=== PATIENT | male | born 1965 | race Caucasian/White ===

== ENCOUNTER 2019-03-26 13:12 | Emergency (ER) | payer MEDICAID, SELFPAY ==
[~2019-03-26] VITALS: Ht 165.1 cm; Wt 75.0 kg
[2019-03-26] MEDS ORDERED: ONDANSETRON 4MG/2ML VIAL (J2405) IV ONE (14:00)
[2019-03-26] MEDS ORDERED: MORPHINE 4 MG/ML 1ML VIAL/SYRINGE (J2270) IV ONE (14:00)
[2019-03-26] MEDS ORDERED: NS 1,000 ML IV ONE (14:00)
[2019-03-26] MEDS ORDERED: NS 500 ML IV ONE (14:00)
[2019-03-26 14:15] LABS: BASO % 0.5 % (0.0-1.0); EOS # 0.1 10^3/uL (0.0-0.50); EOS % 2.2 % (0.0-3.0); HEMATOCRIT 48.4 % (42.0-52.0); HEMOGLOBIN 16.2 g/dl (13.5-17.5); LYMPH % 31.2 % (24.0-44.0); MEAN CORPUSCULAR HEMOGLOBIN 28.4 pg (27.0-33.0); MEAN CORPUSCULAR HGB CONC 33.5 g/dl (32.0-36.5); MEAN CORPUSCULAR VOLUME 84.8 fl (80.0-96.0); MONO # 0.6 10^3/uL (0.0-0.8); MONO % 9.4 % (0.0-5.0); NEUTROPHILS # 3.7 10^3/uL (1.8-7.7); NEUTROPHILS % 56.4 % (36.0-66.0); PLATELET COUNT, AUTOMATED 233 10^3/uL (150-450); RED BLOOD COUNT 5.71 10^6/uL (4.30-6.10); WHITE BLOOD COUNT 6.5 10^3/uL (4.0-10.0)
[2019-03-26 14:26] LABS: INR 1.07
[2019-03-26 14:27] LABS: PARTIAL THROMBOPLASTIN TIME 29.9 SECONDS (25.4-37.6)
--- NOTE | 2019-03-26 14:45 | REP ---
Clinical: Chest pain. Technique: Internal rotation, external rotation, and Y view of the left shoulder. Findings: Cortical irregularity and spurring at the acromioclavicular joint is appreciated along with subtle calcified loose bodies inferior to the glenohumeral joint. No acute fracture dislocation. Subacromial space is normal. Impression: Mild arthritic degenerative changes. Electronically Signed by René Perez MD 03/26/2019 02:36 P
--- NOTE | 2019-03-26 14:46 | REP ---
Clinical: Chest pain. Technique: AP and lateral views of the left humerus. Findings: Mild degenerative changes to the shoulder. No acute fracture dislocation. No subcutaneous emphysema or radiodense foreign body. Impression: Mild degenerative changes. Electronically Signed by René Perez MD 03/26/2019 02:37 P
--- NOTE | 2019-03-26 14:47 | REP ---
Clinical: Chest pain. Technique: Single portable view of the chest. Findings: Mediastinum and cardiac silhouette are normal. Coarsened markings may reflect bronchitis. No focal consolidation, effusion, or pneumothorax. Skeletal structures intact. Impression: No focal consolidation. Cannot exclude bronchitis. Electronically Signed by René Perez MD 03/26/2019 02:38 P
[2019-03-26 14:52] LABS: ALBUMIN 3.8 GM/DL (3.2-5.2); ALT/SGPT 31 U/L (12-78); BILIRUBIN,DIRECT 0.1 MG/DL (0.0-0.2); BILIRUBIN,TOTAL 0.6 MG/DL (0.2-1.0); BLOOD UREA NITROGEN 15 MG/DL (7-18); CALCIUM LEVEL 8.5 MG/DL (8.5-10.1); CARBON DIOXIDE LEVEL 24 MEQ/L (21-32); CHLORIDE LEVEL 110 MEQ/L (98-107); CPK CREATINE PHOSPHOKINASE 52 U/L (39-308); CREATININE FOR GFR 0.32 MG/DL (0.70-1.30); FREE T4 3.78 NG/DL (0.76-1.46); GLOMERULAR FILTRATION RATE > 60.0 (>56); GLUCOSE, FASTING 104 MG/DL (70-100); LIPASE 929 U/L (73-393); MB/CK RELATIVE INDEX 3.27 (< OR =4); POTASSIUM SERUM 4.5 MEQ/L (3.5-5.1); SODIUM LEVEL 143 MEQ/L (136-145); THYROID STIMULATING HORMONE < 0.005 uIU/ML (0.358-3.740); TOTAL PROTEIN 6.8 GM/DL (6.4-8.2); TROPONIN I < 0.02 NG/ML (< 0.10)
[2019-03-26] MEDS ORDERED: PERCOCET 5MG/325MG TAB PO ONE (15:45)
[2019-03-26] MEDS ORDERED: PROPRANOLOL 20 MG TAB PO ONE (15:45)
[2019-03-26] MEDS ORDERED: ASPIRIN 325 MG TAB PO ONE (15:45)
--- NOTE | 2019-03-26 15:59 | REP ---
Clinical: Left upper extremity swelling . Technique: Walker scale and color Doppler evaluation using linear high frequency transducer. Findings: Ultrasound examination of the left upper extremity deep venous structures from the jugular, subclavian, axillary, brachial, basilic, and cephalic veins demonstrate normal venous flow characteristics. There is no evidence for deep venous thrombosis. Impression: No evidence for deep venous thrombosis left upper extremity . Electronically Signed by René Perez MD 03/26/2019 03:50 P
[2019-03-26] MEDS ORDERED: PERC5TAB12 PO (16:01)
[2019-03-26] MEDS ORDERED: ASPI-222 PO (16:02)
[2019-03-26] MEDS ORDERED: PROP20TA PO (16:02)
[2019-03-26 16:09] VITALS: BP 151/83
[2019-03-26 16:45] VITALS: BP 160/100
--- NOTE | 2019-03-26 19:25 | ECGEPIP ---
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
== END 2019-03-26 16:46 | disposition home or self-care (01) ==
LOC: M ED 13:12 → EDBD 13:12 → M ED 16:46
DX: I48.91 Unspecified atrial fibrillation (principal); S46.202A Unspecified injury of muscle, fascia and tendon of other parts of biceps, left arm, initial encounter; S46.002A Unspecified injury of muscle(s) and tendon(s) of the rotator cuff of left shoulder, initial encounter; W11.XXXA Fall on and from ladder, initial encounter; Y92.89 Other specified places as the place of occurrence of the external cause; Y99.0 Civilian activity done for income or pay; F17.200 Nicotine dependence, unspecified, uncomplicated
CPT/HCPCS: 71045; 73030; 73060; 80048; 80076; 82550; 82553; 83690; 84439; 84443; 85025; 85610; 85730; 93005; 93041; 93971; 94760; 96361; 96374; 96375; 99285; J2270; J2405

== ENCOUNTER → 2019-03-31 | Outpatient (REF) | payer MEDICAID ==
[~2019-03-31] MED LIST: ASPI-222 PO; PERC5TAB12 PO; PROP20TA PO
== END ==
LOC: M SFHCPLAZ 16:02
DX: E78.5 Hyperlipidemia, unspecified (principal); E66.9 Obesity, unspecified

== ENCOUNTER → 2019-06-16 | Outpatient (CLI) | payer OTHER ==
[~2019-06-16] MED LIST changes: -ASPI-222 PO; +ASPI-527 PO
== END ==
LOC: M LAB 13:27
PROVIDERS: ATTEND Internal Medicine Endocrinology, Diabetes & Metabolism
DX: E05.00 Thyrotoxicosis with diffuse goiter without thyrotoxic crisis or storm (principal)
CPT/HCPCS: 79005; A9517

== ENCOUNTER → 2019-09-26 | Outpatient (REF) | payer OTHER ==
[2019-09-26 19:26] LABS: FREE T4 0.63 NG/DL (0.76-1.46); THYROID STIMULATING HORMONE 0.006 uIU/ML (0.358-3.740)
== END ==
LOC: M LABDRAW1 17:07
PROVIDERS: ATTEND Nurse Practitioner Family
DX: E05.00 Thyrotoxicosis with diffuse goiter without thyrotoxic crisis or storm (principal)

== ENCOUNTER 2019-11-30 06:04 | Day surgery (SDC) | payer OTHER ==
[~2019-11-30] VITALS: Ht 165.1 cm; Wt 87.5 kg
[~2019-11-30 06:04] MED LIST changes: +ELIQ5TAB PO; +LEVO100T5 PO; +LR 1,000 ML IV ONE; +PROP40TA62 PO
[2019-11-30] MEDS ORDERED: propofoL 200 MG/20 ML VIAL As Ordered ONE (07:11)
[2019-11-30 08:14] VITALS: BP 117/74
--- NOTE | 2019-11-30 09:19 | RO ---
DATE: 11/30/2019 PROCEDURE: DC cardioversion. INDICATION: Atrial fibrillation. BRIEF HISTORY: Mr. Pleitez is a 53-year-old man who has had atrial fibrillation now for approximately 9 months. It was triggered by hyperthyroidism. Because he did not convert back to sinus rhythm after he became euthyroid we decided to proceed with DC cardioversion. I explained the nature of the procedure, potential risks and benefits to him and his on outpatient basis. He did sign appropriate consent. We went over this situation again prior to the procedure. PROCEDURE NOTE: Procedure was performed in recovery room. Darren Ch CRNA was providing sedation. After appropriate time-out was taken and all the monitors were applied he was cardioverted with 200 joules of energy in synchronized fashion. A single shock led to caodaism of sinus rhythm. There were no immediate complications. At the time of this dictation a 12-lead ECG is pending. I tentatively plan to see him in followup next week. There will be no medication changes. OLEKSANDR
--- NOTE | 2019-12-02 19:55 | ECGEPIP ---
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
--- NOTE | 2019-12-02 19:58 | ECGEPIP ---
[facility] Test Date: 2019-11-30 Pat Name: MENA OLMOS Department: Room: - Gender: Male Competency Evaluated Nurse Aide: : 1965 Requested By: Emilee Romero Order Number: [id number] Reading MD: Emilee Romero Measurements Intervals [place] Rate: 65 P: -5 VT: 204 QRS: 11 QRSD: 105 T: 14 QT: 422 QTc: 439 Interpretive Statements SINUS RHYTHM COMPARED TO 7:01 SAME DAY SINUS RHYTHM REPLACED ATRIAL FIBRILLATION Electronically Signed on 12-02-2019 19:58:27 EST by Emilee Romero
== END 2019-11-30 08:40 | disposition home or self-care (01) ==
LOC: M SDC 06:04
PROVIDERS: ATTEND Internal Medicine Cardiovascular Disease
DX: I48.91 Unspecified atrial fibrillation (principal); E05.90 Thyrotoxicosis, unspecified without thyrotoxic crisis or storm; Z79.01 Long term (current) use of anticoagulants; Z79.899 Other long term (current) drug therapy; E78.5 Hyperlipidemia, unspecified; F17.218 Nicotine dependence, cigarettes, with other nicotine-induced disorders

== ENCOUNTER → 2020-05-07 | Outpatient (CLI) | payer OTHER ==
[~2020-05-07] MED LIST changes: +AMIO200T3 PO; +AMLO1TAB24 PO; +ATOR1TAB21 PO; +LEVO112T2 PO; -LR 1,000 ML IV ONE; +MAPA500T2 PO
== END ==
LOC: M LABSMTC 10:27
PROVIDERS: ATTEND Anesthesiology
DX: Z01.818 Encounter for other preprocedural examination (principal); Z11.59 Encounter for screening for other viral diseases
CPT/HCPCS: C9803; U0003

== ENCOUNTER 2020-05-10 07:25 | Day surgery (SDC) | payer OTHER ==
[~2020-05-10] VITALS: Ht 165.1 cm; Wt 96.1 kg
[~2020-05-10 07:25] MED LIST changes: +LIDOCAINE 2% 100MG/5ML SDV (FOR ANES.) As Ordered ONE; +MIDAZOLAM INJ 2MG/2ML VIAL (J2250 PER 1MG) As Ordered ONE; +propofoL 200 MG/20 ML VIAL As Ordered ONE
[2020-05-10] MEDS ORDERED: LR 1,000 ML IV ONE (08:15)
[2020-05-10 09:05] VITALS: BP 112/76
--- NOTE | 2020-05-10 10:51 | RO ---
DATE OF PROCEDURE: 05/10/2020 INDICATION: Atrial fibrillation. PREOPERATIVE DIAGNOSIS: POSTOPERATIVE DIAGNOSIS: PROCEDURE: DC cardioversion. SURGEON: Emilee Romero MD PROGRAM MANAGER: ANESTHESIA: Leona Bella CRNA BRIEF HISTORY: Mr. Pleitez is a 54-year man who has recent history of hyperthyroidism. Initially, we suspected that with correction of the condition, he will resume sinus rhythm, but he did not; and even after initial cardioversion, he relapsed into atrial fibrillation again. Consequently, he was loaded with amiodarone and now comes for elective cardioversion in order to restore sinus mechanism. The nature of the procedure's potential complications were discussed with him on outpatient basis. He did sign appropriate consent. He came today in fasting condition. He was examined, and the nature of the procedure was reviewed with him again. Procedure was performed in recovery room. After appropriate time-out was taken and all the necessary monitors were applied, a single shock of 200 joules applied with biphasic defibrillator, and defibrillator patches in anterolateral position. It led to restorationism of sinus mechanism. There were no immediate complications, and the patient tolerated the procedure well. 12-lead electrocardiogram (ECG) is pending at the time of my dictation. I am going to reduce the dose of propranolol to 30 mg twice a day; and other than that, we will see him in followup next week. He will be instructed to call if any complication should occur in the interim. OLEKSANDR
--- NOTE | 2020-05-10 15:07 | ECGEPIP ---
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
--- NOTE | 2020-05-10 15:10 | ECGEPIP ---
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 Rule out prior septal infarction Subtle ST/T wave abnormalities with QT prolongation Rhythm change from atrial fibrillation along with increased QT interval from e earlier the same day Electronically Signed on 05-10-2020 15:10:26 EDT by Sean Dumont
== END 2020-05-10 09:40 | disposition home or self-care (01) ==
LOC: M SDC 07:25
PROVIDERS: ATTEND Internal Medicine Cardiovascular Disease
DX: I48.91 Unspecified atrial fibrillation (principal); M10.9 Gout, unspecified; I10 Essential (primary) hypertension; E78.5 Hyperlipidemia, unspecified; Z79.01 Long term (current) use of anticoagulants; E05.00 Thyrotoxicosis with diffuse goiter without thyrotoxic crisis or storm; Z79.899 Other long term (current) drug therapy
CPT/HCPCS: 92960; 93005; J2250

== ENCOUNTER → 2020-07-03 | Outpatient (CLI) | payer OTHER ==
[~2020-07-03] MED LIST changes: -LIDOCAINE 2% 100MG/5ML SDV (FOR ANES.) As Ordered ONE; -MIDAZOLAM INJ 2MG/2ML VIAL (J2250 PER 1MG) As Ordered ONE; -propofoL 200 MG/20 ML VIAL As Ordered ONE
== END ==
LOC: M RAD 10:26
PROVIDERS: ATTEND Internal Medicine Endocrinology, Diabetes & Metabolism
DX: E05.00 Thyrotoxicosis with diffuse goiter without thyrotoxic crisis or storm (principal)
CPT/HCPCS: 79005; A9517

== ENCOUNTER → 2021-07-11 | Outpatient (CLI) | payer OTHER ==
--- NOTE | 2021-07-16 17:22 | SLEEPHOME ---
DATE: 07/11/2021 ORDERED BY: OSMANI Ignacio Diagnostic home sleep testing was performed due to concern for the obstructive sleep apnea syndrome in this patient with a history of hypertension and atrial fibrillation. For testing, a Nox-T3 respiratory monitoring device was used. Continuous record was made of pulse, oxygen saturation, air flow, chest and abdominal strain, and body position. Nine hours and 59 minutes of data were reviewed. There were 8 hours marked as time in bed and during the interval marked time in bed, there were 80 respiratory events identified of 10 seconds in duration or greater for a respiratory event index of 10. The events were obstructive. Baseline pulse rate was 85. Pulse rate ranged 67 to 112. Baseline saturation was 90%. Saturations fell to 84%. Testing was performed in both the supine and nonsupine positions. IMPRESSION: Abnormal home sleep testing with repetitive respiratory events and oxygen desaturations to 84% with a respiratory event index of 10 is consistent with the obstructive sleep apnea syndrome. RECOMMENDATION: The patient should be encouraged to undergo a formal sleep evaluation. cc: BEAR VENTURA ENP
== END ==
LOC: M SLEEP HO 11:16
PROVIDERS: ATTEND Nurse Practitioner Family
DX: R40.0 Somnolence (principal); R06.83 Snoring

== ENCOUNTER → 2021-08-30 | Outpatient (REF) | payer OTHER | LOC: M SFHCPLAZ 08:32 | PROVIDERS: ATTEND Family Medicine | DX: Z23 Encounter for immunization (principal); Z53.9 Procedure and treatment not carried out, unspecified reason ==

== ENCOUNTER → 2023-06-09 | Outpatient (CLI) | payer OTHER ==
[~2023-06-09] MED LIST changes: -AMIO200T3 PO; +AMIO200T49 PO
== END ==
LOC: M PLALAB 09:22
PROVIDERS: ATTEND Student in an Organized Health Care Education/Training Program
DX: Z12.11 Encounter for screening for malignant neoplasm of colon (principal)

== ENCOUNTER 2024-04-19 06:39 | Day surgery (SDC) | payer OTHER ==
[~2024-04-19] VITALS: Ht 165.1 cm; Wt 89.4 kg
[~2024-04-19 06:39] MED LIST changes: +ACET-839 PO; +SYNT50TA PO
[2024-04-19] MEDS: NS 1,000 ML IV ONE (07:06)
[2024-04-19] MEDS ORDERED: propofoL 200 MG/20 ML VIAL As Ordered ONE (07:11)
[2024-04-19] MEDS ORDERED: LIDOCAINE 2% 100MG/5ML SDV (FOR ANES.) As Ordered ONE (07:11)
[2024-04-19 08:00] VITALS: TEMP 97.1
[2024-04-19 08:17] VITALS: BP 147/70; O2SAT 98
== END 2024-04-19 08:28 | disposition home or self-care (01) ==
LOC: M OPP 06:39
PROVIDERS: ATTEND Surgery
DX: K64.8 Other hemorrhoids (principal); K57.30 Diverticulosis of large intestine without perforation or abscess without bleeding; K63.5 Polyp of colon; R19.5 Other fecal abnormalities; I10 Essential (primary) hypertension; I48.91 Unspecified atrial fibrillation; G47.30 Sleep apnea, unspecified; Z99.89 Dependence on other enabling machines and devices; F17.200 Nicotine dependence, unspecified, uncomplicated; Z79.1 Long term (current) use of non-steroidal anti-inflammatories (NSAID); Z79.01 Long term (current) use of anticoagulants; Z79.890 Hormone replacement therapy; Z79.899 Other long term (current) drug therapy

== ENCOUNTER → 2024-12-20 | Outpatient (CLI) | payer OTHER ==
[~2024-12-20] MED LIST changes: +AMLO1TAB25 PO
[2024-12-20 14:53] LABS: BASO # 0.1 10^3/uL (0.0-0.2); EOS # 0.4 10^3/uL (0.0-0.5); EOS % 5.3 % (0.0-3.0); HEMATOCRIT 46.4 % (42.0-52.0); HEMOGLOBIN 15.6 g/dl (13.5-17.5); LYMPH # 1.8 10^3/uL (1.5-5.0); LYMPH % 26.2 % (24.0-44.0); MEAN CORPUSCULAR HEMOGLOBIN 30.8 pg (27.0-33.0); MEAN CORPUSCULAR HGB CONC 33.6 g/dl (32.0-36.5); MEAN CORPUSCULAR VOLUME 91.7 fl (80.0-96.0); MONO # 0.9 10^3/uL (0.0-0.8); MONO % 12.5 % (2.0-8.0); NEUTROPHILS # 3.8 10^3/uL (1.5-8.5); NEUTROPHILS % 54.7 % (36.0-66.0); PLATELET COUNT, AUTOMATED 313 10^3/uL (150-450); RED BLOOD COUNT 5.06 10^6/uL (4.30-6.10)
[2024-12-20 15:27] LABS: BLOOD UREA NITROGEN 15 MG/DL (9-23); CALCIUM LEVEL 9.4 MG/DL (8.3-10.6); CARBON DIOXIDE LEVEL 29 MMOL/L (20-31); CHLORIDE LEVEL 103 MMOL/L (98-107); CREATININE FOR GFR 0.61 MG/DL (0.70-1.30); GLOMERULAR FILTRATION RATE > 60.0 (>49); GLUCOSE, FASTING 87 MG/DL (74-106); SODIUM LEVEL 142 MMOL/L (136-145)
== END ==
LOC: M PLALAB 12:28
PROVIDERS: ATTEND Student in an Organized Health Care Education/Training Program
DX: Z01.818 Encounter for other preprocedural examination (principal); J06.9 Acute upper respiratory infection, unspecified

== ENCOUNTER 2024-12-23 12:24 | Day surgery (SDC) | payer OTHER ==
[~2024-12-23] VITALS: Ht 162.6 cm; Wt 100.1 kg
[2024-12-23] MEDS: CelecoXIB 400 MG CAP PO ONE (12:51)
[2024-12-23] MEDS ORDERED: LR 1,000 ML IV SCH (12:55)
[2024-12-23] MEDS: ceFAZolin SOD 2 GM in IV 1 EA IV ONE (14:33)
[2024-12-23] MEDS ORDERED: dexmedeTOMIDine (4MCG/ML)200MCG/50ML BTL (PRECEDEX) As Ordered ONE (14:34)
[2024-12-23] MEDS ORDERED: propofoL 200 MG/20 ML VIAL As Ordered ONE (14:34)
[2024-12-23] MEDS ORDERED: fentaNYL 250 MCG/5 ML INJECTION As Ordered ONE (14:34)
[2024-12-23] MEDS ORDERED: LIDOCAINE 2% 100MG/5ML SDV (FOR ANES.) As Ordered ONE (14:34)
[2024-12-23] MEDS ORDERED: ROCURONIUM BROMIDE 50MG/5ML VIAL As Ordered ONE (14:34)
[2024-12-23] MEDS ORDERED: METOCLOPRAMIDE INJ 10MG/2ML VIAL As Ordered ONE (14:34)
[2024-12-23] MEDS ORDERED: ACETAMINOPHEN 1000MG/100ML IV BAG As Ordered ONE (14:34)
[2024-12-23] MEDS ORDERED: KETOROLAC 60MG 2ML VIAL As Ordered ONE (14:34)
[2024-12-23] MEDS ORDERED: MIDAZOLAM INJ 2MG/2ML VIAL As Ordered ONE (14:34)
[2024-12-23] MEDS ORDERED: ONDANSETRON 4MG 2ML VIAL As Ordered ONE (14:34)
[2024-12-23] MEDS ORDERED: SUGAMMADEX SODIUM 500 MG/5 ML VIAL (BRIDION) As Ordered ONE (14:34)
[2024-12-23] MEDS ORDERED: ALBUTEROL 6.7GM INHALER **FOR ANES. CART/OMNICELL ONLY As Ordered ONE (14:49)
[2024-12-23] MEDS ORDERED: LACRILUBE (AKWA TEARS) OPHTH OINT 3.5GM As Ordered ONE (15:19)
[2024-12-23] MEDS: BUPivacaine LIPOSOME/PF 266MG 20ML VIAL (13.3MG/ML)(EXPAREL) As Ordered ONE (17:03)
[2024-12-23] MEDS: LIDOCAINE 1% SDV 30ML VIAL As Ordered ONE (17:04)
[2024-12-23] MEDS ORDERED: fentaNYL 100 MCG/2 ML INJECTION IV PRN (17:10)
[2024-12-23] MEDS ORDERED: oxyCODONE 5MG TAB PO PRN (17:10)
[2024-12-23] MEDS ORDERED: MEPERIDINE 25 MG/ML 1ML VIAL IV PRN (17:10)
[2024-12-23] MEDS ORDERED: ONDANSETRON 4MG 2ML VIAL IV PRN (17:10)
[2024-12-23] MEDS: HYDROMORPHONE HCL 0.5 MG/ 0.5 ML SYRINGE IV PRN (17:28)
[2024-12-23] MEDS: LEVALBUTEROL 1.25MG 0.5ML CONCENTRATE NEB INH ONE (17:40)
[2024-12-23] MEDS ORDERED: NORCO, ANEXSIA 5/325MG TABLET (HYDROcodone/ACETAMINOPHEN) PO PRN ×2 (17:45)
[2024-12-23 18:32] VITALS: BP 143/70; TEMP 98.5; O2SAT 95
[2024-12-23] MEDS ORDERED: KETOROLAC 30 MG/ML 1ML VIAL IV SCH (21:00)
== END 2024-12-23 19:27 | disposition home or self-care (01) ==
LOC: M SDC 12:24
PROVIDERS: ATTEND Surgery
DX: K42.9 Umbilical hernia without obstruction or gangrene (principal); I10 Essential (primary) hypertension; I49.1 Atrial premature depolarization; M10.9 Gout, unspecified; E03.9 Hypothyroidism, unspecified; G47.33 Obstructive sleep apnea (adult) (pediatric); Z79.01 Long term (current) use of anticoagulants; Z92.3 Personal history of irradiation; Z79.899 Other long term (current) drug therapy; F17.218 Nicotine dependence, cigarettes, with other nicotine-induced disorders
CPT/HCPCS: 49593; C1781; J0131; J0665; J0666; J0690; J1100; J1171; J1885; J2250; J2405; J2765; J3010; S2900

== ENCOUNTER → 2025-07-31 | Outpatient (CLI) | payer OTHER ==
[~2025-07-31] MED LIST changes: -AMIO200T49 PO; +AMIO200T54 PO
== END ==
LOC: M RAD 09:56
PROVIDERS: ATTEND Physician Assistant
DX: Z12.2 Encounter for screening for malignant neoplasm of respiratory organs (principal); Z87.891 Personal history of nicotine dependence